=== PATIENT | male | born 1950 | race African-American/Black ===

== ENCOUNTER 2021-04-18 18:14 | Emergency (ER) | payer MEDICARE ==
--- NOTE | 2021-04-18 18:26 | Emergency Department Report ---
HPI - General Time Seen by Provider: 04/18/21 18:24 - HPI HPI: This is a 70-year-old male who presents to the emergency department via EMS from home in cardiac arrest. Apparently family told EMS that the patient had been working outside and in the shed all day, and this was a witnessed arrest. Unknown past medical history and the patient has never been to this facility previously. EMS arrived and initiated ACLS protocol. The patient was intubated and began receiving bag valve ventilation through the endotracheal tube. He was given chest compressions. The patient was found to be in V. fib for the majority of his EMS course. He received 3 different defibrillations, four doses of epinephrine and 1 dose of sodium bicarbonate. The patient was found to have an Accu-Chek of about 100. He presented to our emergency department and was placed in room #1 and was found to still be pulseless, but was now in asystole. ED Review of Systems ROS: Stated complaint: CARDIAC ARREST Other details as noted in HPI Comment: Unobtainable due to pts medical conditions Physical Exam - Physical Exam Physical Exam: GENERAL: Patient is ill-appearing and unresponsive. HENT: Normocephalic. Atraumatic. EYES: Pupils are fixed and dilated. NECK: Supple. Trachea appears midline. CHEST/LUNGS: There are no spontaneous respirations. HEART/CARDIOVASCULAR: There are no spontaneous heart sounds. ABDOMEN: Abdomen is soft. There is no abdominal distention. SKIN: Skin is cool but dry. NEURO: Unresponsive. Does not withdraw to painful stimuli. Does not follow any commands. MUSCULOSKELETAL: There is no obvious deformity. There is no evidence of acute injury. No palpable femoral or radial pulses. ED Medical Decision Making - Medical Decision Making This patient presents to the emergency department in cardiac arrest. He had been down and without ROSC for about 30 minutes prior to arrival in our emergency department. Initially he was in V. fib arrest with EMS. He was intubated, was receiving chest compressions, had 3 different defibrillations, received ACLS medications, but there was no ROSC. He presented to the ED in asystole. We continued ACLS protocol with bag valve ventilation through the endotracheal tube, chest compressions. The patient received 3 rounds of ACLS protocol and was given the following ACLS meds: Round 1: Epinephrine, sodium bicarbonate, calcium Round to: Epinephrine, magnesium Round 3: Epinephrine The patient was pulseless and asystole for each pulse and rhythm check. Overall the patient has not had appropriate cardiac activity for more than 45 minutes. Pupils are fixed and dilated. There are no spontaneous heart or breath sounds. The patient is cool to touch. Time of was called at 1821. Critical Care Time: Yes Critical care time in (mins) excluding proc time.: 20 Critical care attestation.: If time is entered above; I have spent that time in minutes in the direct care of this critically ill patient, excluding procedure time. Critical care time was spent on this patient in doing his initial evaluation and supervision of ACLS protocol. Critical Care Time: 20 minutes ED Disposition Clinical Impression: Cardiac arrest Acute respiratory failure Qualifiers: Respiratory failure complication: unspecified whether with hypoxia or hyp ercapnia Qualified Code(s): J96.00 - Acute respiratory failure, unspecified whether with hypoxia or hypercapnia Disposition: 20 Is pt being admited?: No Time of Disposition: 18:55
[2021-04-18] MEDS ORDERED: EPINEPHrine 1 MG/10 ML SYRINGE ONE ×2 (22:35→22:50)
[2021-04-18] MEDS ORDERED: DEXTROSE 50% IN WATER (25GM) 50 ML SYRINGE IV ONE (22:50)
[2021-04-18] MEDS ORDERED: SODIUM BICARB 8.4% 50 MEQ/50 ML SYRINGE IV ONE (22:50)
[2021-04-18] MEDS ORDERED: CALCIUM CHLORIDE 1,000 MG/10 ML SYRINGE IV ONE (22:50)
[2021-04-18] MEDS ORDERED: MAGNESIUM SULFATE 1 GM/2ML (4 MEQ/1ML) INJ ONE (22:50)
== END 2021-04-18 23:55 ==
LOC: ED 18:14
DX: I46.9 Cardiac arrest, cause unspecified (principal); J96.00 Acute respiratory failure, unspecified whether with hypoxia or hypercapnia
CPT/HCPCS: 92950; 99285; J0171; J3475